=== PATIENT | female | born 1995 | race Caucasian/White ===

== ENCOUNTER 2019-04-25 16:40 | Emergency (ER) | payer OTHER ==
[~2019-04-25] VITALS: Ht 167.6 cm; Wt 59.4 kg
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
--- NOTE | 2019-04-25 17:58 | NUR ---
PT BELONGINGS WERE LOGGED AND FROM PT WITH PT LABELS NAME
[2019-04-25 18:10] LABS: BASOPHILS % (AUTO) 0.3 % (0.0-2.0); HEMATOCRIT 38 % (33-45); HEMOGLOBIN 12.4 g/dL (11.5-14.8); LYMPHOCYTES # (AUTO) 0.8 /CMM (0.8-4.8); LYMPHOCYTES % (AUTO) 5.9 % (20.0-44.0); MEAN CORPUSCULAR HGB CONC 33 g/dl (31.0-36.0); MEAN CORPUSCULAR VOLUME 84 fL (82-100); MONOCYTES % (AUTO) 6.7 % (2.0-12.0); NEUTROPHILS # (AUTO) 12.5 /CMM (1.8-8.9); NEUTROPHILS % (AUTO) 87.1 % (43.0-81.0); PLATELET COUNT (AUTO) 169 /CMM (150-450); WHITE BLOOD COUNT (AUTO) 14.3 K/uL (4.3-11.0)
[2019-04-25 18:19] LABS: CALCIUM, SERUM 9.6 mg/dL (8.5-10.1); CARBON DIOXIDE 24 mmol/L (21-32); CHLORIDE 104 mmol/L (98-107); GLUCOSE 65 mg/dL (74-106); POTASSIUM 3.7 mmol/L (3.5-5.1); SODIUM SERUM 142 mmol/L (136-145); UREA NITROGEN, BLOOD 17 mg/dL (7-18)
[2019-04-25 18:24] LABS: ALANINE AMINOTRANSFERASE 65 U/L (12-78); ALBUMIN 4.3 g/dL (3.4-5.0); ALCOHOL, BLOOD < 3 mg/dL (0-0); ALKALINE PHOSPHATASE 56 U/L (46-116); ASPARTATE AMINOTRANSFERASE 50 U/L (15-37); BILIRUBIN,DIRECT 0.2 mg/dL (0.0-0.2); BILIRUBIN,TOTAL 0.9 mg/dL (0.2-1.0); SALICYLATE 3.1 mg/dL (2.8-20.0); TOTAL PROTEIN, SERUM 7.9 g/dL (6.4-8.2)
[2019-04-25 18:27] LABS: ACETAMINOPHEN < 2 ug/ml (10-30)
[2019-04-25 18:50] LABS: APPEARANCE,URINE Slightly Cloudy (CLEAR); BILIRUBIN,URINE SMALL (NEGATIVE); BLOOD, URINE Large Ery/uL (NEGATIVE); COLOR,URINE Dark (YELLOW); KETONES,URINE 40 (NEGATIVE); LEUKOCYTE ESTERASE ,URINE Negative (NEGATIVE); NITRITE, URINE Negative (NEGATIVE); PH,URINE 5.5 (5.0-8.0); PROTEIN,URINE >=300 mg/dl (NEGATIVE); UGLUCOSE Negative (NEGATIVE); UROBILINOGEN,URINE 0.2 EU/dL (0.2)
[2019-04-25] MEDS ORDERED: IV NS 0.9% 1,000 ML BAG IV ONE (19:00)
[2019-04-25 19:03] LABS: BACTERIA,URINE Many /HPF (None Seen); SQUAMOUS EPITHELIAL CELL,UR Many /HPF (None Seen)
[2019-04-25 19:04] LABS: WBC,URINE 0-2 /HPF (0-3)
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
--- NOTE | 2019-04-25 20:20 | NUR ---
CALLED [employer], STATES WILL CALL BACK
--- NOTE | 2019-04-25 21:00 | NUR ---
RESTRAINTS REMOVED, GOOD PERFUSION AND CIRCULATION. SKIN INTACT PT WAS ASSISTED TO THE BATHROOM. NO DISTRESS. WILL CONTINUE TO MONITOR
--- NOTE | 2019-04-25 22:27 | NUR ---
HADOOP JAVA DEVELOPER DONTRELL CAST 1 HOUR
--- NOTE | 2019-04-25 23:49 | NUR ---
ENDORSED TO MARY TO CONTINUE DAIJA
[2019-04-25] MEDS ORDERED: OLANZAPINE 5 MG TABLET ONE (23:50)
[2019-04-26] MEDS ORDERED: OLANZAPINE 5 MG TABLET PO ONE
--- NOTE | 2019-04-26 02:21 | NUR ---
PT ASLEEP, NO ACUTE DISTRESS NOTED, RESP EVEN AND UNLABORED. 1:1 SITTER REMAINS AT BEDSIDE. CALL LIGHT WIHTIN REACH. WILL CONTINUE TO MONITOR PT.
--- NOTE | 2019-04-26 02:51 | NUR ---
PT SCREAMING, AGITATED, YELLING AT THE SITTER, VERBALLY ABUSIVE. ER MD MADE AWARE WITH ORDERS RECEIVED.
[2019-04-26] MEDS ORDERED: LORAZEPAM INJ 2 MG/ML VIAL ONE (02:56)
[2019-04-26] MEDS ORDERED: LORAZEPAM INJ 2 MG/ML VIAL IM ONE (03:00)
--- NOTE | 2019-04-26 03:01 | NUR ---
PT MEDICATED ORDERED.
--- NOTE | 2019-04-26 03:43 | NUR ---
PT ASLEEP, NO ACUTE DISTRESS NOTED, RESP EVEN AND UNLABORED. 1:1 SITTER REMAINS AT BEDSIDE. CALL LIGHT WIHTIN REACH. WILL CONTINUE TO MONITOR PT.
--- NOTE | 2019-04-26 06:09 | NUR ---
PT ASLEEP, EASILY AROUSABLE. VSS. NO ACUTE DISTRESS NOTED. RESPIRATIONS EVEN AND UNLABORED. CALL LIGHT WITHIN REACH.
--- NOTE | 2019-04-26 06:13 | NUR ---
DONTRELL BAUER AT BEDSIDE TO RE-EVAL PT.
[2019-04-26 08:06] VITALS: BP 118/67
--- NOTE | 2019-04-26 08:39 | NUR ---
PATIENT IN BED ASLEEP, EASILY AROUSABLE BY VOICE. HOOKED TO MONITOR, VSS. KEPT SAFE AND COMFORTABLE. WILL CONTINUE TO MONITOR ACCORDINGLY.
--- NOTE | 2019-04-26 08:40 | NUR ---
SITER AT BEDSIDE
--- NOTE | 2019-04-26 11:30 | NUR ---
PROVIDED W FOOD TRAY, PATIENT NOT HUNGRY, PLACED FOOD TRAY AT BEDSIDE
--- NOTE | 2019-04-26 15:32 | NUR ---
FILAMENT MAKER TYREE VANCE AT BEDSIDE
[2019-04-26 16:53] LABS: BASOPHILS % (AUTO) 0.4 % (0.0-2.0); EOSINOPHILS % (AUTO) 4.7 % (0.0-6.0); HEMATOCRIT 41 % (33-45); HEMOGLOBIN 13.3 g/dL (11.5-14.8); LYMPHOCYTES # (AUTO) 2.1 /CMM (0.8-4.8); LYMPHOCYTES % (AUTO) 29.9 % (20.0-44.0); MEAN CORPUSCULAR HGB CONC 33 g/dl (31.0-36.0); MEAN CORPUSCULAR VOLUME 86 fL (82-100); MONOCYTES # (AUTO) 0.5 /CMM (0.1-1.30); MONOCYTES % (AUTO) 7.6 % (2.0-12.0); NEUTROPHILS # (AUTO) 4.1 /CMM (1.8-8.9); NEUTROPHILS % (AUTO) 57.4 % (43.0-81.0); PLATELET COUNT (AUTO) 165 /CMM (150-450); RED BLOOD CELL COUNT(AUTO) 4.76 MIL/uL (4.0-5.2); WHITE BLOOD COUNT (AUTO) 7.1 K/uL (4.3-11.0)
--- NOTE | 2019-04-26 16:59 | NUR ---
PATIENT ACCEPTED IN [facility]: ACCEPTING MD: DR FRANKLIN UNIT: [id number] NUMBER FOR REPORT: [phone] ZITA (CALL BACK NUMBER): [phone]
--- NOTE | 2019-04-26 17:49 | NUR ---
[facility] [phone]
--- NOTE | 2019-04-26 18:59 | NUR ---
REPORT GIVEN TO ALISHA LYNN FOR TRANSPORT TO [facility]
== END 2019-04-26 08:41 | disposition short-term general hospital (02) ==
LOC: ER 16:42
DX: R45.851 Suicidal ideations (principal)
CPT/HCPCS: 36415 ×2; 80048; 80076; 80305; 80307; 80329; 81001; 84703; 85025 ×2; 87086; 96372; 99285; G0480; J2060; J7030; 81000-TC